=== PATIENT | male | born 1970 | race Caucasian/White ===

== ENCOUNTER → 2021-04-07 | Day surgery (SDC) | payer OTHER ==
[~2021-04-07] VITALS: Ht 180.3 cm; Wt 86.5 kg
[~2021-04-07] MED LIST: BUSPIRONE HCL10 MG PO; CEFDINIR300 MG PO; MOBIC15 MG PO; XARELTO20 MG PO
[2021-04-07 08:06] LABS: HCT 48.3 % (42.0-52.0); MCH 31.5 pg (25.0-31.0); MCHC 35.2 g/dL (32.0-36.0); MCV 89.6 fL (78.0-100.0); MPV 10.6 fL (6.0-9.5); RBC 5.39 M/uL (4.70-6.00); RDW 13.2 % (11.5-14.0)
[2021-04-07 09:30] LABS: ALBUMIN 4.6 g/dL (3.4-5.0); BILIRUBIN - TOTAL 0.7 mg/dL (0.2-1.0); BUN/CREAT RATIO (CALC) 21.3 RATIO; CREATININE 0.89 mg/dL (0.67-1.17); GLOBULIN (CALCULATION) 3.4 g/dL; POTASSIUM 3.9 mmol/L (3.5-5.1)
== END | disposition home or self-care (01) ==
LOC: FAS 01-29 09:45
PROVIDERS: Surgery
DX: Z12.11 Encounter for screening for malignant neoplasm of colon (principal); K58.9 Irritable bowel syndrome, unspecified
CPT/HCPCS: 36415; 80053; J1610; J2250; J2704; J7120